=== PATIENT | male | born 1995 | race Caucasian/White ===

== ENCOUNTER 2018-03-27 21:01 | Emergency (ER) | payer MEDICAID ==
[~2018-03-27] VITALS: Ht 180.3 cm; Wt 86.2 kg
[2018-03-27 21:02] VITALS: BP 146/86
[2018-03-27 22:01] VITALS: BP 146/86
== END 2018-03-27 21:57 | disposition home or self-care (01) ==
LOC: MED 21:01
DX: J01.00 Acute maxillary sinusitis, unspecified (principal)
CPT/HCPCS: 99283